=== PATIENT | female | born 1970 | race Asian ===

== ENCOUNTER 2024-10-05 10:57 | Outpatient (AMB) | payer BC, SELFPAY ==
--- NOTE | 2024-10-05 10:59 | MHC.OFFVIS ---
Vital Signs 10/05/24 11:03 Height 5 ft 5 in Weight 129 lb BMI 21.5 BP 100/70 Blood Pressure Location Rt brachial Position Sitting Pulse 82 Pulse Source Pulse Oximeter Pulse Oximetry (%) 99 Oxygen Delivery Method Room Air Intake Visit Reasons: FAIZAN+ Intake Note: Patient presents for a positive faizan. Toll Collector Name: [email or web address] [id number] Information Interpreted: non-clinical & clinical Allergies No Known Allergies Allergy (Verified 10/05/24 11:05) HPI HPI FAIZAN+: Details: Georgian and Mohawk speaking patient. Video applique cutter is present to help with medical terminology. FAIZAN 1:1280 04/2024, RF low titre + 25 iu/ml 02/10/2023. Migratory pain lasting few days involving right leg. It self resolves after 90 minutes. She has had pain on jarrett 1-2 years. It occur as infrequently as every 3 months and lasts 30 minutes. When she walks it disappears. She localizes pain to right lateral infrapatellar region and right lateral ankle. She experiences bone pain in jarrett when it occurs. X-ray February 2023 of right fibula and tibia was unremarkable, reviewed on patient's phone from her patient portal access. FAIZAN ordered in setting of patient having dry mouth. She has dry eyes, which started after test was done. Laboratory results also revealed low WCC 4.1 N 4.8-10.8. 03/2024 WCC 3.5. Drinks red meghana and green tea once or twice a day. She had 2 abortions. She had two children without complications. No hx DVT or PE. She has gained weight. Denies recent weight loss. She also has ringing in her ears and loss of hearing. She reports bleeding gums and sores in mouth. Denies dyspnea, pleurisy, nausea, vomiting, urinary symptoms, easily bruising, hair loss, photosensitivity. In the past she experienced neck pain, which got worse with physical therapy. She looked up exercises at home, which improved neck pain along with acupuncture. She continues to do at home exercise program. Her current commute to work is 30-45 minutes. Mother had arthritis requiring knee aspiration. She works as an accountant clerk. Denies smoking or drinking alcohol. [facility] Medical History (Updated 10/05/24 @ 12:56 by Tam Ritchie MD) Positive FAIZAN (antinuclear antibody) Physical Exam Vital Signs: Last Vital Signs Pulse 82 10/05/24 11:03 BP 100/70 10/05/24 11:03 Pulse Ox 99 10/05/24 11:03 Oxygen Delivery Method Room Air 10/05/24 11:03 BMI result Body Mass Index 21.5 Const Other: General: Comfortable CVS: RRR Respiratory: clear to auscultation bilaterally. Good respiratory effort Skin: No lesions seen Oral: Dry tongue present Lymph nodes: No cervical lymphadenopathy present. MSK: No tender joints. No synovitis. Normal range of motion of upper extremities and lower extremities. Assessment & Plan Assessment & Plan (1) Positive FAIZAN (antinuclear antibody): Comment: High titer positive, low titer positive rheumatoid factor, leukopenia, dry eyes and dry mouth. Due to high titer positive FAIZAN and leukopenia, I will further workup for systemic lupus erythematosus with labs. Positive FAIZAN, rheumatoid factor, leukopenia and sicca symptoms could be explained by Sjogren syndrome. She does not have clinical signs of inflammatory arthritis. I am concerned that her intermittent pain that occurs infrequently is related to tendon strain involving the patellar tendon and in the past peroneus brevis or longus tendon. We discussed conservative management with physical therapy to resolve the symptoms and prevent progression. Patient will think about PT. Code(s): R76.8 - Other specified abnormal immunological findings in serum Category: Medical Plan: I have asked her to call her correctional supply supervisor's to see if she can be seen sooner for eye exam. At this time she has her annual eye exam scheduled for October or November. Laboratory workup ordered PT requisition given to patient to have local to her home Return to clinic to review results (2) Rheumatoid factor positive: Code(s): R76.8 - Other specified abnormal immunological findings in serum Category: Medical Plan: See above (3) Leukopenia: Code(s): D72.819 - Decreased white blood cell count, unspecified Category: Medical Qualifiers: Leukopenia type: unspecified Qualified Code(s): D72.819 - Decreased white blood cell count, unspecified Plan: See above (4) Strain of right patellar tendon: Comment: Patient has self-limited pain today localized to right infrapatellar tendon today. Code(s): S86.811A - Strain of other muscle(s) and tendon(s) at lower leg level, right leg, initial encounter Category: Medical Qualifiers: Encounter type: initial encounter Qualified Code(s): S86.811A - Strain of other muscle(s) and tendon(s) at lower leg level, right leg, initial encounter Plan: See above (5) Right calf pain: Comment: May be related to strain. Unremarkable exam. We discussed conservative management. I offered her PT for strengthening. Code(s): M79.661 - Pain in right lower leg Category: Medical Plan: PT ordered given to patient. She will think about it. (6) Peroneus brevis tendonitis: Code(s): M76.70 - Peroneal tendinitis, unspecified leg Category: Medical Qualifiers: Laterality: right Qualified Code(s): M76.71 - Peroneal tendinitis, right leg Plan: See above (7) Peroneus longus tendinitis: Code(s): M76.70 - Peroneal tendinitis, unspecified leg Category: Medical Qualifiers: Laterality: right Qualified Code(s): M76.71 - Peroneal tendinitis, right leg Plan: See above Orders: Orders Complete Blood Count Auto Diff Today R76.0 - Raised antibody titer UA ClnCatch+Micro w/rflx Cult Today R76.0 - Raised antibody titer Alanine Aminotransferase Today R76.0 - Raised antibody titer Protein Creatinine Ratio, Ur Today R76.0 - Raised antibody titer Aspartate Amino Transferase Today R76.0 - Raised antibody titer Anti DNA DS Antibody Today R76.0 - Raised antibody titer Erythrocyte Sedimentation Rate Today R76.0 - Raised antibody titer Sm Sm/PRESIDENTIAL SUPPORT SPECIALIST Antibodies Today R76.0 - Raised antibody titer Complement C4 Today R76.0 - Raised antibody titer Protein Electrophoresis, Serum Today D72.819 - Decreased white blood cell count, unspecified PT Evaluation and Treatment Today M76.70 - Peroneal tendinitis, unspecified leg, M79.661 - Pain in right lower leg, S86.811A - Strain of other muscle(s) and tendon(s) at lower leg level, right leg, initial encounter Creatinine Today R76.0 - Raised antibody titer C Reactive Protein Today R76.0 - Raised antibody titer Complement C3 Today R76.0 - Raised antibody titer Rheumatoid Factor Today R76.0 - Raised antibody titer Cyclic Citrullinated Peptide Today R76.0 - Raised antibody titer Sjogren's Antibodies Today R76.0 - Raised antibody titer Coding Level of Care Code New Pt Level 4 (05193) Diagnoses Positive FAIZAN (antinuclear antibody) R76.8 Rheumatoid factor positive R76.8 Leukopenia, unspecified type D72.819 Leukopenia type: unspecified Strain of right patellar tendon, initial encounter S86.811A Encounter type: initial encounter Right calf pain M79.661 Tendinitis of right peroneus brevis tendon M76.71 Laterality: right Tendinitis of right peroneus longus tendon M76.71 Laterality: right
[2024-10-05 11:03] VITALS: BP 100/70; PULSE 82; O2SAT 99; BMI 21.5
--- OUTSIDE RECORDS SUMMARY | 2024-10-05 12:12 | XMS_ITS | Clinical Summary ---
Author Organization [facility] Address [address] [place] [address] Phone Care Team Providers Care C Software Engineer Name Role Phone Gretel Ojeda MD Primary Care Pr ovider Allergies No known active allergies Family History Medical History Relation Comments Heart disease Mother Seizures Sister Relation Status Comments Father Mother Sister Social History Tobacco Use Types Packs/Day Years Used Date Smoking Tobacco: Never Assessed Education Answer Date Recorded Are you interested in more education? Not on irwin e 07/18/2023 Are you concerned about learning? Not on file 07/18/2023 No 07/18/2023 No 07/18/2023 Digital Access Answer Date Recorded No 07/18/2023 No 07/18/2023 Reliable internet access at home? Not on file 07/18/2023 Device with a working camera? Not on file Comments Unknown Sex and Gender Information Value Date Recorded Sex Assigned at Not on file Legal Sex Female 3:51 PM EDT Gender Identity Not on file Sexual Orientation Not on file Plan of Treatment Upcoming Encounters Date Type Department Care Team (Late st Contact Info) Description 05/18/2025 10:10 AM EDT Office Visit [facility] Rhe[facility]ology [address] [place] [address] Jahaira Marie MD, MPH [address], [address] [place] [address] [email or web address] Health Maintenance Due Date Last Done Comments Adult Td,Tdap Booster 1968 LIPID PANEL 1968 DEPRESSION SCREENING 1980 SMOKING Hx and SMOKELESS TOB ACCO SCREENING 1981 HEPATITIS C SCREENING 1986 HIV ONE-TIME SCREENING (18-6 5 YEARS) 1986 PAP SMEAR 1989 MAMMOGRAM 2008 COLOGUARD 2013 COLONOSCOPY 2013 COLORECTAL CANCER SCREENING 2013 FIT TEST 2013 FOBT 2013 SIGMOIDOSCOPY 2013 VIRTUAL COLONOSCOPY 2013 PNEUMOCOCCAL VACCINES (50+ y ears) (1 of 1 - PCV) 2018 ZOSTER VACCINES (1 of 2) 2018 COVID-19 VACCINE (1 - 2023-2 5 season) 2023 HEPATITIS A VACCINES Aged Out No long er eligible based on patient's age to complete this topic HIB VACCINES Aged Out No longer eligi ble based on patient's age to complete this topic MENINGOCOCCAL VACCINES (ACWY) Aged Out No longer eligible based on patient's age to complete this topic MENINGOCOCCAL VACCINES (B) Aged Out N o longer eligible based on patient's age to complete this topic Medical Devices Not on file Insurance [facility] [place] [address] [address] [place] [address] [facility] Care Teams C Software Engineer Relationship Specialty Start Date End Date Gretel Ojeda MD PCP - General Family Medicine 07/03/23 Additional Source Comments The information contained in this document represents components of the legal health record. It is not the complete legal health record.[facility]
--- OUTSIDE RECORDS SUMMARY | 2024-10-05 12:12 | XMS_ITS ---
Author Name [facility] Organization Unknown Care Team Organization Name Specialty Phone Email Start Date End Da te [facility] LISANDRO HERNANDEZ Primary Care [email or web address] 02/19/2023 4 [facility] Termed, PROVIDER Primary Care 01/15/202210/08 4
--- OUTSIDE RECORDS SUMMARY | 2024-10-05 12:13 | XMS_ITS | Clinical Summary ---
Author Organization [address] Address [address] [place] [address] Phone Care Team Providers Care Pediatric Lpn Name Role Phone Gretel Ojeda MD Primary Care Pr ovider Allergies No known active allergies Medications calcitrioL (ROCALTROL) 0.5 mcg capsule Take 1 capsule (0.5 mcg total) by mouth 1 (one) time each day. Active Active Problems Problem Noted Date Diagnosed Date Chronic leukopenia 03/12/2024 Tinnitus 02/05/2022 Environmental and seasonal allergies 08/10/2015 Syncope 10/26/2010 Overview (12/26/2023): See note 10/25/10 Scoliosis 09/18/2010 Immunizations Name Administration Dates Next Due Influenza Quadravalent, MDCK , 0.5ml, preservative free (Flucelvax) 6mo and older 02/07/2023,02/05/2022,11/29/2019,2017 Influenza trivalent, MDCK, 0 .5mL, preservative free (Flucelvax) 6mo and older 02/11/2024 Tdap Tetanus diptheria acell ular pertussis (Boostrix; Adacel) 7yo and older 02/05/2022,09/18/2010 Surgical History Surgery Date Site/Laterality Comments BREAST LUMPECTOMY 2000 Right PROCEDURE: ---- BREAST LUMP BIOPSY ---- Medical History Medical History Date Comments Scoliosis 09/18/2010 DX:Scoliosis Scoliosis 09/18/2010 DX:Scoliosis Syncope 10/26/2010 DX:Syncope Abnormal cervical Papanicolaou smear 11/04/2016 DX:Abnormal cervical Papanicolaou smear; COMMENT: 10/24 - LGSIL, can't exclude high grade 11/26 ASCUS, HPV negative Family History Medical History Relation Name Comments Other: bronchial cancer Father Other: no info on biological father Father Other: some heart disease Mother ?s yncope, no details Ovarian cancer Mother's side Uterine cancer Other maternal cous in Other: seizure Sister Breast cancer Neg Hx Colon cancer Neg Hx Relation Name Status Comments Daughter Alive Father Mother Mother's side uncle's daugh ter Other Sister Son Alive Social History Tobacco Use Types Packs/Day Years Used Date Smoking Tobacco: Never Smokeless Tobacco: Never Alcohol Use Standard Drinks/Week Comments Yes 0 (1 standard drink = 0.6 oz pur e alcohol) rarely Housing Instability Answer Date Recorde d Are you worried that in the next 2 months you may not have stable housing? No 02/11/2024 Food Access & Nutrition Answer Date Rec orded Do you have access to a vari ety of food including fruits and vegetables? Yes 02/11/2024 Access to Healthcare Answer Date Record ed Within the last 3 months, ho w many times did you visit the emergency department for your medical care? 0 02/11/2024 Health Literacy Answer Date Recorded How often do you need to hav e someone help you when you read instructions, pamphlets, or other written material from your doctor or pharmacy? Never 02/11/2024 Caregiver: How often do you need to have someone help you when you read instructions, pamphlets, or other written material from your doctor or pharmacy? Not on file 02/11/2024 Financial Risk Answer Date Recorded How hard is it for you to pa y for the very basics like food, housing, medical care, and air conditioning / heating? Not very hard 02/11/2024 Transportation Answer Date Recorded Has the lack of transportati on kept you from meetings, work, or from getting things needed for daily living? No Has the lack of transportati on kept you from medical appointments or from getting medications? No 02/11/2024 Social Isolation Answer Date Recorded How often do you feel lonely or isolated from those around you? Sometimes 02/11/2024 Food Risk Answer Date Recorded Within the past 12 months we worried whether our food would run out before we got money to buy more. Never true 02/11/2024 Within the past 12 months th e food we bought just didn't last and we didn't have money to get more. Never true 02/11/2024 Dependent Care Answer Date Recorded Do you need help finding or paying for care for your loved ones. For example, children's librarian or elderly care for an older adult? No 02/11/2024 Education Answer Date Recorded Do you think completing more education or training, like finishing a GED, going to college, or learning a trade, would be helpful for you? No 02/11/2024 Employment and Income Answer Date Recor ded During the last four weeks, have you been actively looking for work? No 02/11/2024 Living Situation Answer Date Recorded What is your living situation? 1 04/13/2023 Comments No Sex and Gender Information Value Date Recorded Sex Assigned at Not on file Legal Sex Female 11:22 PM EST Gender Identity Not on file Sexual Orientation Not on file Obstetrics History Last Filed Vital Signs Vital Sign Reading Time Taken Comments Blood Pressure 103/55 05/07/2024 2:04 PM EST Pulse 71 05/07/2024 2:04 PM EST Temperature 36.9 C (98.4 F) 05/07/2024 2:04 PM EST Respiratory Rate 14 04/06/2024 3:13 PM EST Oxygen Saturation 99% 05/07/2024 2:04 PM EST Inhaled Oxygen Concentration - - Weight 58.1 kg (128 lb) 05/07/2024 2:04 PM EST Height 165.1 cm (5' 5 ) 05/07/2024 2:04 PM EST Body Mass Index 21.3 05/07/2024 2:04 PM EST Plan of Treatment Upcoming Encounters Date Type Department Care Team (Late st Contact Info) Description 02/17/2025 8:20 AM EST Office Visit [facility] [address] [facility] [address] [place] [id number] Britt Wilson MD [address] [facility] [address] [place] [address] Health Maintenance Due Date Last Done Comments Hepatitis B Vaccines (1 of 3 - 19+ 3-dose series) 11/02/1987 Pneumococcal Vaccine: 50+ Years (1 of 1 - PCV) 2018 Zoster Vaccines (1 of 2) 2018 HIV Screening 02/16/2022 Cervical Cancer Screening: Pap Smear 03/16/2023 03/16/2020 Influenza Vaccine (#1) 2024 , 02/07/2023, 02/05/2022, Additional history exists Social Influencers of Health Screening 02/10/2025 02/11/2024 Breast Cancer Screening 06/25/2025 06/26/2023 Colorectal Cancer Screening: Colonoscopy 07/11/2025 07/11/2020 Cholesterol Screening (Lipid Panel) 02/11/2029 02/12/2024, 02/10/2023 DTaP,Tdap,and Td Vaccines (3 - Td or Tdap) 02/06/2032 02/05/2022, 09/18/2010 COVID-19 Vaccine Discontinued 02/23/2023, , 07/04/2020 Depression Screening Completed 03/30/2024 Hepatitis C Screening Completed 05/07/2024, 022 HIB Vaccines Aged Out No longer eligi ble based on patient's age to complete this topic HPV Vaccines Aged Out No longer eligi ble based on patient's age to complete this topic Hepatitis A Vaccines Aged Out No long er eligible based on patient's age to complete this topic IPV Vaccines Aged Out No longer eligi ble based on patient's age to complete this topic MMR Vaccines Aged Out No longer eligi ble based on patient's age to complete this topic Meningococcal ACWY Vaccine Aged Out N o longer eligible based on patient's age to complete this topic Meningococcal B Vaccine Aged Out No l onger eligible based on patient's age to complete this topic RSV Immunization Patients Under 20 months Aged Out No longer eligible based on patient's age to complete this topic Varicella Vaccines Aged Out No longer eligible based on patient's age to complete this topic Procedures Procedure Name Priority Date/Time Associated Diagnosis Comments HEPATITIS C ANTIBODY Routine 05/07/2024 2:30 PM EST Chronic leukopenia LIPID PANEL WITH REFLEX TO DIRECT LDL Routine 02/12/2024 9:02 AM EST Elevated LDL cholesterol level COLONOSCOPY Routine 07/11/2020 PAP SMEAR Routine 03/16/2020 from Last 3 Months or Most Recently Relevant to Health Maintenance Results * Hepatitis C antibody (05/07/2024 2:30 PM EST) [facility] Hepatitis C Antibody Negative Negative LAB CHEMISTRY METHOD 05/07/2024 8:25 PM EST [facility] Blood Venous blood specimen / Unknown Venipuncture / Unknown 05/07/2024 2:30 PM EST 05/07/2024 4:38 PM EST Subramony Syed CARIAS LAB BLOOD ORDERABLE S Final Result [facility] [address] [place] [address], [place] [phone] * Lipid panel with reflex to direct LDL (02/12/2024 9:02 AM EST) [facility] Cholesterol 168 0 - 200 mg/dL LAB CHEMISTRY METHOD 02/12/2024 2:41 PM EST [facility] Triglycerides 89 0 - 150 mg/dL LAB CHEMISTRY METHOD 02/12/2024 2:41 PM EST [facility] HDL 59 >=40 mg/dL LAB CHEMISTRY METHOD 02/12/2024 2:41 PM [facility] LDL Calculated 91 0 - 100 mg/dL LAB CHEMISTRY METHOD 02/12/2024 2:41 PM EST [facility] VLDL Cholesterol Dejuan 17.8 mg/dL LAB CHEMISTRY METHOD 02/12/2024 2:41 PM EST [facility] Non HDL Chol. (LDL+VLDL) 109 <145 mg/dL LAB CHEMISTRY METHOD 02/12/2024 2:41 PM EST [facility] Chol/HDL Ratio 2.8 0.0 - 4.4 LAB CHEMISTRY METHOD 02/12/2024 2:41 PM EST [facility] Blood Venous blood specimen / Unknown Venipuncture / Unknown 02/12/2024 9:02 AM EST 02/12/2024 9:02 AM EST Gretel Ojeda MD LAB BLOOD ORDERA BLES Final Result [facility] [address] [place] [address], * Colonoscopy (07/11/2020) Pathologist [facility] Colonoscopy No interpretation , abstracted Anatomical Region Laterality Modality Other Historical Provider HEALTH MAINTENANCE Final Result * Pap Smear (03/16/2020) Pap smear No interpretation , abstracted Historical Provider HEALTH MAINTENANCE Final Result from Last 3 Months or Most Recently Relevant to Health Maintenance Insurance [facility] Care Teams Pediatric Lpn Relationship Specialty Start Date End Date Gretel Ojeda MD [address] [place], [place] PCP - General Internal Medicine 09/06/21
== END 2024-10-05 12:35 | disposition home or self-care (01) ==
LOC: HO.RHES 10:58
PROVIDERS: PCP Family Medicine; Visit Provider Internal Medicine Rheumatology
DX: R76.8 Other specified abnormal immunological findings in serum (principal); D72.819 Decreased white blood cell count, unspecified; S86.811A Strain of other muscle(s) and tendon(s) at lower leg level, right leg, initial encounter; M79.661 Pain in right lower leg; M76.71 Peroneal tendinitis, right leg
CPT/HCPCS: 99204

== ENCOUNTER 2024-10-05 10:57 | Outpatient (REF) | payer BC, SELFPAY ==
[2024-10-05 18:10] LABS: MANUAL DIFF FLAG NO
[2024-10-05 18:16] LABS: Hematocrit 39.3 % (37.0-47.0); Hemoglobin 12.6 g/dl (12.0-16.0); Imm Gran Abs Auto 0.01 X10*3/uL (0.00-0.03); Imm Gran Pct Auto 0.2 % (0.0-0.4); Lymphocytes Absolute Auto 1.3 X10*3/uL (1.2-4.9); Mean Corpuscular HGB Conc 32.1 g/dl (31.0-35.0); Mean Corpuscular Hemoglobin 27.9 pg (27.0-33.0); Mean Corpuscular Volume 87.1 fL (80.0-98.0); NRBC Abs Auto 0.000 X10*3/uL (0.0-0.012); NRBC Pct Auto 0.0 /100WBC (0.0-0.2); Platelet Count 196 X10*3/uL (160-400); Red Blood Count 4.51 X10*6/uL (4.20-5.50); White Blood Count 5.8 X10*3/uL (4.8-10.8)
[2024-10-05 18:18] LABS: Appearance Urine Clear; Glucose Urine UA Negative (Negative); PH 6.0 (5.0-9.0); Specific Gravity - Urine <= 1.005 (1.005-1.025)
[2024-10-05 18:24] LABS: Alanine Aminotransferase 18 U/L (0-31); Aspartate Amino Transferase 25 U/L (5-31); Estimated Glomerular Filt Rate > 60
[2024-10-05 18:44] LABS: Total Protein Urine Random < 7 mg/dL (<12)
[2024-10-06 23:38] LABS: Antibody to SS-A Antigen >8.0 POS AI (<1.0 NEG); Antibody to SS-B Antigen <1.0 NEG AI (<1.0 NEG); SM/Ribonucleoprotein Ab <1.0 NEG AI (<1.0 NEG); Smith Protein <1.0 NEG AI (<1.0 NEG)
[2024-10-07 21:52] LABS: Prot Elec - Albumin 4.8 g/dL (3.8-4.8); Prot Elec - Alpha1 0.3 g/dL (0.2-0.3); Prot Elec - Alpha2 0.6 g/dL (0.5-0.9); Prot Elec - Beta 1 0.4 g/dL (0.4-0.6); Prot Elec - Beta 2 0.3 g/dL (0.2-0.5); Prot Elec - Gamma 1.4 g/dL (0.8-1.7); Prot Elec - Total Protein 7.7 g/dL (6.1-8.1)
== END 2024-10-05 10:58 | disposition home or self-care (01) ==
LOC: HO.HKASLDS 10:57
PROVIDERS: PCP Family Medicine; Visit Provider Internal Medicine Rheumatology
DX: R76.8 Other specified abnormal immunological findings in serum (principal); S86.811A Strain of other muscle(s) and tendon(s) at lower leg level, right leg, initial encounter; D72.819 Decreased white blood cell count, unspecified; M79.661 Pain in right lower leg; M76.71 Peroneal tendinitis, right leg; R76.0 Raised antibody titer
CPT/HCPCS: 36415; 81001; 82565; 82570; 84156; 84165; 84450; 84460; 85025; 85652; 86140; 86160; 86200; 86225; 86235; 86431

== ENCOUNTER 2024-11-17 09:57 | Outpatient (REF) | payer BC, SELFPAY ==
--- OUTSIDE RECORDS SUMMARY | 2024-11-17 14:33 | XMS_ITS | Clinical Summary ---
Author Organization [address] Address [address] [place] [address] Phone Care Team Providers Care Taker Out Name Role Phone Gretel Ojeda MD Primary [...] care for your loved ones. For example, child guidance counselor or elderly care for an older adult? [...] Description 02/17/2025 8:20 AM EST Office Visit [facility] [address] [facility] [place] [address] Britt Wilson MD [address] [place] [address] [place] [address] Health Maintenance Due Date Last Done Comments [...] Hepatitis C antibody (05/07/2024 2:30 PM EST) Pathologist [facility] Hepatitis C Antibody Negative Negative LAB CHEMISTRY METHOD 05/07/2024 8:25 PM EST [facility] Blood Venous blood specimen / Unknown Venipuncture / Unknown 05/07/2024 2:30 PM EST 05/07/2024 4:38 PM EST us Subramgeovanna Lynch MD LAB BLOOD ORDERABLE S Final Result [facility] [address] [place] [address], * Lipid panel with reflex to direct LDL (02/12/2024 9:02 AM EST) Pathologist [facility] Cholesterol 168 0 - 200 mg/dL LAB CHEMISTRY METHOD 02/12/2024 2:41 PM [facility] Triglycerides 89 0 - 150 mg/dL LAB CHEMISTRY METHOD 02/12/2024 2:41 PM [facility] HDL 59 >=40 mg/dL LAB CHEMISTRY METHOD 02/12/2024 2:41 PM [facility] LDL Calculated 91 0 - 100 mg/dL LAB CHEMISTRY METHOD 02/12/2024 2:41 PM [facility] VLDL Cholesterol Dejuan 17.8 mg/dL LAB CHEMISTRY METHOD 02/12/2024 2:41 PM [facility] Non HDL Chol. (LDL+VLDL) 109 <145 mg/dL LAB CHEMISTRY METHOD 02/12/2024 2:41 PM [facility] Chol/HDL Ratio 2.8 0.0 - 4.4 LAB CHEMISTRY METHOD 02/12/2024 2:41 PM EST [facility] Blood Venous blood specimen / Unknown Venipuncture / Unknown 02/12/2024 9:02 AM EST 02/12/2024 9:02 AM EST Gretel Ojeda MD LAB BLOOD ORDERA BLES Final Result [facility] [address] [place] [address], * Colonoscopy (07/11/2020) Colonoscopy No interpretation , abstracted Anatomical Region Laterality Modality Other Historical Provider HEALTH MAINTENANCE Final Result * Pap Smear (03/16/2020) Pap smear No interpretation , abstracted Historical Provider HEALTH MAINTENANCE Final Result from Last 3 Months or Most Recently Relevant to Health Maintenance [facility] Care Teams Taker Out Relationship Specialty Start Date End Date Gretel Ojeda MD [address] [facility] [place], [place] PCP - General Internal Medicine 09/06/21
[2024-11-17 18:19] LABS: MANUAL DIFF FLAG NO
[2024-11-17 18:38] LABS: Hematocrit 36.3 % (37.0-47.0); Hemoglobin 11.9 g/dl (12.0-16.0); Imm Gran Abs Auto 0.01 X10*3/uL (0.00-0.03); Imm Gran Pct Auto 0.2 % (0.0-0.4); Lymphocytes Absolute Auto 1.3 X10*3/uL (1.2-4.9); Mean Corpuscular HGB Conc 32.8 g/dl (31.0-35.0); Mean Corpuscular Hemoglobin 28.1 pg (27.0-33.0); Mean Corpuscular Volume 85.6 fL (80.0-98.0); NRBC Abs Auto 0.000 X10*3/uL (0.0-0.012); NRBC Pct Auto 0.0 /100WBC (0.0-0.2); Platelet Count 172 X10*3/uL (160-400); Red Blood Count 4.24 X10*6/uL (4.20-5.50); White Blood Count 5.7 X10*3/uL (4.8-10.8)
[2024-11-23 15:27] LABS: DNAds, Crithidia Antibody Negative (Negative)
== END 2024-11-17 09:58 | disposition home or self-care (01) ==
LOC: HO.HKASLDS 09:57
PROVIDERS: PCP Family Medicine; Visit Provider Internal Medicine Rheumatology
DX: D72.819 Decreased white blood cell count, unspecified (principal); M35.00 Sjogren syndrome, unspecified; R76.8 Other specified abnormal immunological findings in serum; R76.0 Raised antibody titer
CPT/HCPCS: 36415; 85025; 85652; 86140; 86255

== ENCOUNTER 2024-11-17 09:57 | Outpatient (AMB) | payer BC, SELFPAY ==
[2024-11-17 10:19] VITALS: BP 100/80; PULSE 77; O2SAT 99; BMI 22.0
--- NOTE | 2024-11-17 10:19 | MHC.OFFVIS ---
Vital Signs 11/17/24 10:19 Height 5 ft 5 in Weight 132 lb 4.438 oz BMI 22.0 BP 100/80 Blood Pressure Location Lt brachial Position Sitting Pulse 77 Pulse Source Pulse Oximeter Pulse Oximetry (%) 99 Oxygen Delivery Method Room Air Intake Visit Reasons: 1-2 months next available Intake Note: Patient presents for a positive faizan. Accompanied by: Self / Same As Patient Allergies No Known Allergies Allergy (Verified 11/17/24 10:22) HPI HPI 1-2 months next available: Details: She has changed the teas that she drinks at work to green tea. She is drinking more water. Dry mouth is manageable. She continues to have dry eyes. She had an episode of right anterior jarrett pain that lasted a few days. It occurred 2 weeks ago. No specific trigger. No new joint swelling. She is experiencing more fatigue than usual. After her walk in the evening she goes to sleep. In the past she was able to do more activity after her walks. [facility] Medical History Positive FAIZAN (antinuclear antibody) Physical Exam Vital Signs: Last Vital Signs Pulse 77 11/17/24 10:19 BP 100/80 11/17/24 10:19 Pulse Ox 99 11/17/24 10:19 Oxygen Delivery Method Room Air 11/17/24 10:19 BMI result Body Mass Index 22.0 Const Other: General: Comfortable CVS: RRR Respiratory: clear to auscultation bilaterally. Good respiratory effort Skin: No lesions seen Oral: Dry tongue present Lymph nodes: No cervical lymphadenopathy present. MSK: No tender joints. No synovitis. Normal range of motion of upper extremities and lower extremities. Assessment & Plan Assessment & Plan (1) Sjogrens syndrome: Comment: suspected. Hx of chronic dry eyes, dry mouth, intermittent leucopenia, fatigue, +FAIZAN 1:1280 (04/2022), RF 25, SSA ab >8.0. Dry mouth is tolerable with hydration. Code(s): M35.00 - Sjogren syndrome, unspecified Category: Medical Plan: ENT referral for minor salivary gland bx Ophthalmology referral for eye exam to evaluate for keratoconjunctivitis sicca and Teresita's test Return to clinic in 3 months (2) Positive FAIZAN (antinuclear antibody): Comment: High titer positive and leukopenia. Laboratory workup for SLE revealed indeterminate double-stranded DNA 7. Her clinical picture is concerning for Sjogren syndrome and not SLE. I will order more specific Crithidia testing for double-stranded DNA this visit and retesting CBC. Code(s): R76.8 - Other specified abnormal immunological findings in serum Category: Medical Plan: CBC and Crithidia double-stranded DNA ordered Return to clinic in 3 months Orders: Orders Complete Blood Count Auto Diff Today D72.819 - Decreased white blood cell count, unspecified, R76.8 - Other specified abnormal immunological findings in serum C Reactive Protein Today R76.0 - Raised antibody titer DNA Double Stranded-Crithidia Today D72.819 - Decreased white blood cell count, unspecified, R76.0 - Raised antibody titer, R76.8 - Other specified abnormal immunological findings in serum Erythrocyte Sedimentation Rate Today R76.0 - Raised antibody titer Referrals Ear/Nose/Throat Referral M35.00 - Sjogren syndrome, unspecified Coding Level of Care Code Est Pt Level 4 (67838) Complex EM visit Add On G2211 Diagnoses Sjogrens syndrome M35.00 Positive FAIZAN (antinuclear antibody) R76.8
--- OUTSIDE RECORDS SUMMARY | 2024-11-17 12:02 | XMS_ITS | Clinical Summary ---
Author Organization Located Within [facility] Address [address] [place] [address] Phone Care Team Providers Care Supervisor Case Loading Name Role Phone Gretel Ojeda MD Primary [...] Visit [facility] [address] [place] [address] Jahaira Marie MD, MPH [address], [address] [place] [address] [email or web address] Health Maintenance Due Date Last Done Comments [...] 2018 ZOSTER VACCINES (1 of 2) 2018 INFLUENZA VACCINE (#1) 2024 COVID-19 VACCINE (1 - 2023-2 5 season) 2024 HEPATITIS A VACCINES Aged Out No long [...] topic Medical Devices Not on file Insurance [facility] [place] [address] [address] [place] [address] [place] [address] [facility] Care Teams Supervisor Case Loading Relationship Specialty Start Date End Date Gretel Ojeda MD PCP - General Family Medicine 07/03/23 Additional Source Comments The information contained in this document represents components of the legal health record. It is not the complete legal health record.Located Within [facility]
== END 2024-11-17 11:14 | disposition home or self-care (01) ==
LOC: HO.RHES 09:58
PROVIDERS: PCP Family Medicine; Visit Provider Internal Medicine Rheumatology
DX: M35.00 Sjogren syndrome, unspecified (principal); R76.8 Other specified abnormal immunological findings in serum
CPT/HCPCS: 99214